=== PATIENT | male | born 1980 ===

== ENCOUNTER 2021-04-30 19:42 | Emergency (ER) | payer SELFPAY ==
--- NOTE | 2021-04-30 20:37 | XRay Report ---
CHEST 1 VIEW 04/30/2021 8:08 PM INDICATION / CLINICAL INFORMATION: Chest Pain. COMPARISON: None available. FINDINGS: SUPPORT DEVICES: None. HEART / MEDIASTINUM: No significant abnormality. LUNGS / PLEURA: No significant pulmonary or pleural abnormality. No pneumothorax. ADDITIONAL FINDINGS: No significant additional findings. IMPRESSION: 1. No acute findings. Signer Name: Salo Blanton DO Signed: 04/30/2021 8:33 PM Workstation Name: [id number]
[2021-04-30 21:16] LABS: Hematocrit 42.7 % (35.5-45.6); Hemoglobin 14.4 gm/dl (11.8-15.2); Mean Corpuscular HGB Conc 34 % (32-34); Mean Corpuscular Volume 91 fl (84-94); Platelet Count 180 K/mm3 (140-440); Red Cell Distribution Width 13.1 % (13.2-15.2)
[2021-04-30 21:33] LABS: BUN/Creatinine Ratio 17; Blood Urea Nitrogen 17 mg/dL (9-20); Calcium 9.6 mg/dL (8.4-10.2); Hemolysis Index 14
--- NOTE | 2021-04-30 21:47 | Emergency Department Report ---
ED Palpitations HPI - General Chief Complaint: Chest Pain Stated Complaint: WEAKNESS/CHEST PAIN Time Seen by Provider: 04/30/21 19:59 Source: patient Mode of arrival: Stretcher Limitations: Language Barrier - History of Present Illness Initial Comments: CC: palpitations HPI: This is a healthy 40 yo male without significant past medical history who presents with palpitations for several hours. He feels as if his heart speeds up. He now has intermittent sharp pain sensation which last less than a second. He works overtime. He has not slept well. He smoke cigarettes. He drinks a lot of coffee. No hx of cardiac disease. No hx of drug use. Mild alcohol use. Kuwaiti speaking staff member provided Kuwaiti Language line interpretation. Complaint: "heart racing", palpitations -: Sudden, This afternoon Context: occured during rest Associated Symptoms: denies other symptoms - Related Data Allergies Allergy/AdvReac Type Severity Reaction Status Date / Time No Known Allergies Allergy Verified 04/30/21 20:46 ED Review of Systems ROS: Stated complaint: WEAKNESS/CHEST PAIN Other details as noted in HPI Comment: All other systems reviewed and negative Constitutional: denies: chills, fever, malaise Respiratory: denies: cough, shortness of breath Cardiovascular: chest pain, palpitations Gastrointestinal: denies: abdominal pain, nausea, vomiting ED Past Medical Hx - Past Medical History Previous Medical History?: No - Surgical History Past Surgical History?: No - Family History Family history: no significant - Social History Smoking Status: Current Every Day Smoker Substance Use Type: Alcohol ED Physical Exam - General Limitations: Language Barrier General appearance: alert, in no apparent distress - Head Head exam: Present: atraumatic, normocephalic - Eye Eye exam: Present: normal appearance - ENT ENT exam: Present: mucous membranes moist - Neck Neck exam: Present: normal inspection, full ROM - Respiratory Respiratory exam: Present: normal lung sounds bilaterally. Absent: respiratory distress, wheezes, rales, rhonchi - Cardiovascular Cardiovascular Exam: Present: regular rate, normal rhythm, normal heart sounds. Absent: systolic murmur, diastolic murmur, rubs, gallop - GI/Abdominal GI/Abdominal exam: Present: soft, normal bowel sounds. Absent: distended, tenderness, guarding, rebound - Rectal Rectal exam: Present: deferred - Extremities Exam Extremities exam: Present: normal inspection - Back Exam Back exam: Present: normal inspection - Neurological Exam Neurological exam: Present: alert, oriented X3 - Psychiatric Psychiatric exam: Present: normal affect, normal mood - Skin Skin exam: Present: warm, dry, intact, normal color. Absent: rash ED Course Vital Signs 04/30/21 04/30/21 04/30/21 20:15 20:30 20:46 Temperature 98.0 F Pulse Rate 69 68 68 Respiratory 17 15 Rate Blood Pressure 109/64 109/64 104/50 Blood Pressure 104/50 [Left] O2 Sat by Pulse 98 98 98 Oximetry 04/30/21 04/30/21 20:50 21:16 Temperature Pulse Rate 68 Respiratory 14 14 Rate Blood Pressure 110/41 Blood Pressure [Left] O2 Sat by Pulse 97 97 Oximetry ED Medical Decision Making - Lab Data Result diagrams: 04/30/21 20:57 04/30/21 20:57 Laboratory Results - last 24 hr 04/30/21 04/30/21 20:57 20:57 WBC 10.1 RBC 4.70 Hgb 14.4 Hct 42.7 MCV 91 MCH 31 MCHC 34 RDW 13.1 L Plt Count 180 Sodium 140 Potassium 3.8 Chloride 106.0 Carbon Dioxide 20 L Anion Gap 18 BUN 17 Creatinine 1.0 Estimated GFR > 60 BUN/Creatinine Ratio 17 Glucose 97 Calcium 9.6 Troponin T < 0.010 - EKG Data -: EKG Interpreted by Al EKG shows normal: sinus rhythm, axis, intervals, QRS complexes, ST-T waves Rate: normal - EKG Data Interpretation: normal EKG 04/30/21 21:46 +PVC EKG obtained 2003 EKG interpreted by wy Rate 70 bpm Normal sinus rhythm normal rate normal axis normal intervals no ST elevation no ST-T signs of ischemia normal EKG - Radiology Data Radiology results: report reviewed Patient Name: ROLANDO HEMPHILL Gender: Male Date of : 1980 Home Phone: Referring Provider: NAIN POMPA Organization: [facility] Accession Number: [id number] Requested Date: April 30, 2021 19:59 Report Status: Final Requested Procedure: 1 Procedure Description: XR chest 1V ap Modality: XR Findings Reporting MD: Salo Blanton Dictation Time: April 30, 2021 19:33 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 COMPARISON: None available. FINDINGS: SUPPORT DEVICES: None. HEART / MEDIASTINUM: No significant abnormality. LUNGS / PLEURA: No significant pulmonary or pleural abnormality. No pneumothorax. ADDITIONAL FINDINGS: No significant additional findings. IMPRESSION: 1. No acute findings. Signer Name: Salo Blanton DO Signed: 04/30/2021 7:33 PM Workstation Name: [email or web address] - Medical Decision Making Frequent PVC's HEART Score zero, recommended rest hydration cessation of smoking decreased caffeine. Referred to career counselor and internal medicine. Critical care attestation.: If time is entered above; I have spent that time in minutes in the direct care of this critically ill patient, excluding procedure time. ED Disposition Clinical Impression: PVCs (premature ventricular contractions), Chest pain Disposition: ADMITTED INPATIENT Is pt being admited?: Yes Does the pt Need Aspirin: No Condition: Stable Instructions: Premature Ventricular Contraction Referrals: SON STANFORD MD [Staff Physician] - 3-5 Days DEMARCUS OWEN MD [Staff Physician] - 3-5 Days Print Language: [place] HEART Score - HEART Score History: Slightly suspicious EKG: Normal Age: < 45 Risk factors: No known risk factors Troponin: Troponin T < 0.010 ng/mL (0.00-0.029) 04/30/21 20:57 Troponin: < normal limit HEART Score: 0 - Critical Actions Critical Actions: 0-3 pts:0.9-1.7%risk of adverse cardiac event.Candidate for discharge
[2021-04-30 22:00] LABS: Basophils % (Manual) 0 % (0.0-1.8); Eosinophils % (Manual) 0 % (0.0-4.3); Total Cells Counted 100
[2021-04-30 22:03] LABS: Large Platelets Few; Platelet Estimate Consistent w Auto; RBC Morphology Normal
[2021-04-30 22:37] VITALS: BP 95/42
--- NOTE | 2021-05-02 14:32 | Electrocardiograph Report ---
[facility] Test Date: 2021-04-30 Test Time: 20:04:56 Pat Name: ROLANDO HEMPHILL Department: Room: Gender: M Equities Trader: CHICHI : 1980 Requested By: NAIN POMPA Order Number: [id number] Reading MD: Alis Mendez Measurements Intervals [place] Rate: 70 P: 47 AL: 164 QRS: 72 QRSD: 91 T: 50 QT: 387 QTc: 418 Interpretive Statements Sinus rhythm Ventricular premature complex Otherwise normal ECG No previous ECG available for comparison Electronically Signed On 05-02-2021 14:32:06 EST by Alis Mendez
== END 2021-04-30 22:20 | disposition home or self-care (01) ==
LOC: ED 19:42
DX: I49.3 Ventricular premature depolarization (principal); R07.9 Chest pain, unspecified; F17.200 Nicotine dependence, unspecified, uncomplicated; F10.20 Alcohol dependence, uncomplicated
CPT/HCPCS: 36415; 71045; 80048; 84484; 85007; 85025; 93005; 93010; 99284